=== PATIENT | male | born 1980 ===

== ENCOUNTER 2023-03-27 11:09 | Outpatient (CLI) | payer OTHER, SELFPAY ==
--- NOTE | 2023-03-27 10:45 | DI.RAD_ITS ---
Exam(s) XR SHOULDER RT COMPLETE 2+V EXAM: XR SHOULDER RT COMPLETE 2+V CLINICAL HISTORY: RIGHT SHOULDER PAIN. TECHNIQUE: 2D digital imaging was performed. COMPARISON: No exams were available for comparison FINDINGS: Two views: No evidence of fracture or dislocation or abnormal soft tissue calcifications. Subacromial space is not diminished. There are no degenerative changes in the glenohumeral and AC joints. Bone density n ormal. No osseous lesions. Clavicle unremarkable. IMPRESSION: No significant osseous findings in the shoulder. DATA REPOSITORY: RADIATION DOSE DELIVERED:
== END 2023-03-27 11:10 | disposition home or self-care (01) ==
LOC: DIORS 11:09
PROVIDERS: Visit Provider Student in an Organized Health Care Education/Training Program
DX: M25.511 Pain in right shoulder (principal); M12.811 Other specific arthropathies, not elsewhere classified, right shoulder
CPT/HCPCS: 73030